=== PATIENT | male | born 1960 | race African-American/Black ===

== ENCOUNTER 2017-09-14 07:07 | Outpatient (CLI) | payer OTHER ==
--- NOTE | 2017-09-14 08:39 | ULT ---
HEPATIC SONOGRAM WITH DUPLEX EVALUATION. HISTORY: Hepatitis C. FINDINGS: Echogenic stones are present within the dependent portion of the gallbladder lumen. There is no gall bladder wall thickening or pericholecystic fluid. The common duct is 0.4 cm diameter. T he liver is unremarkable without focal mass or intrahepatic biliary dilatation. No free fluid is visible. The s pleen is 9.4 cm in length. Good color and spectral Doppler flow are present within the hepatic and splenic arteries. Portal liz ous flow is towards the liver. Hepatic venous flow is towards the IVC. IMPRESSION: 1. Cholelithiasis. No evidence of acute biliary obstruction. 2. No sonographic evidence of portal venous hypertension. POS: [facility]
== END 2017-09-14 07:08 | disposition home or self-care (01) ==
LOC: ULT 07:07
PROVIDERS: ATTEND Internal Medicine Gastroenterology
DX: B18.2 Chronic viral hepatitis C (principal); K74.60 Unspecified cirrhosis of liver; K80.20 Calculus of gallbladder without cholecystitis without obstruction
CPT/HCPCS: 76705

== ENCOUNTER 2018-03-15 07:28 | Outpatient (CLI) | payer OTHER | END 2018-03-15 07:29 | disposition home or self-care (01) | LOC: BICULT 07:28 | PROVIDERS: ATTEND Internal Medicine Gastroenterology | DX: B18.2 Chronic viral hepatitis C (principal); K80.20 Calculus of gallbladder without cholecystitis without obstruction; R93.2 Abnormal findings on diagnostic imaging of liver and biliary tract | CPT/HCPCS: 76705 ==

== ENCOUNTER 2018-08-15 20:30 | Outpatient (CLI) | payer OTHER | END 2018-08-15 20:31 | disposition home or self-care (01) | LOC: SLEEPLAB 20:30 | PROVIDERS: ATTEND Family Medicine | DX: G47.33 Obstructive sleep apnea (adult) (pediatric) (principal); I10 Essential (primary) hypertension; R06.83 Snoring; R09.89 Other specified symptoms and signs involving the circulatory and respiratory systems | CPT/HCPCS: 95811 ==

== ENCOUNTER 2021-03-12 07:29 | Outpatient (CLI) | payer OTHER | END 2021-03-12 07:30 | disposition home or self-care (01) | LOC: BICULT 07:29 | PROVIDERS: ATTEND Physician Assistant Medical | DX: K74.60 Unspecified cirrhosis of liver (principal); K21.9 Gastro-esophageal reflux disease without esophagitis; K80.20 Calculus of gallbladder without cholecystitis without obstruction | CPT/HCPCS: 36415; 76705; 80053; 82105; 85025 ==

== ENCOUNTER 2021-09-17 07:20 | Outpatient (CLI) | payer OTHER | END 2021-09-17 07:21 | disposition home or self-care (01) | LOC: BICULT 07:20 | PROVIDERS: ATTEND Physician Assistant Medical | DX: K74.60 Unspecified cirrhosis of liver (principal); K21.9 Gastro-esophageal reflux disease without esophagitis; K80.20 Calculus of gallbladder without cholecystitis without obstruction | CPT/HCPCS: 76705 ==

== ENCOUNTER 2022-04-10 07:43 | Outpatient (CLI) | payer OTHER | END 2022-04-10 07:44 | disposition home or self-care (01) | LOC: BICULT 07:43 | PROVIDERS: ATTEND Physician Assistant Medical | DX: K74.60 Unspecified cirrhosis of liver (principal); K80.20 Calculus of gallbladder without cholecystitis without obstruction; K83.8 Other specified diseases of biliary tract | CPT/HCPCS: 76705 ==

== ENCOUNTER 2022-05-29 07:37 | Outpatient (CLI) | payer OTHER ==
[2022-05-29] MEDS ORDERED: Magnevist 469MG/ML 20 ML VIAL ONE (14:59)
== END 2022-05-29 07:38 | disposition home or self-care (01) ==
LOC: MRI 07:37
PROVIDERS: ATTEND Physician Assistant Medical
DX: K80.20 Calculus of gallbladder without cholecystitis without obstruction (principal); K83.8 Other specified diseases of biliary tract; N28.1 Cyst of kidney, acquired; K76.89 Other specified diseases of liver
CPT/HCPCS: 74183

== ENCOUNTER 2022-08-13 13:36 | Outpatient (CLI) | payer OTHER | END 2022-08-13 13:37 | disposition home or self-care (01) | LOC: BICCT 13:36 | PROVIDERS: ATTEND Student in an Organized Health Care Education/Training Program | DX: Z12.2 Encounter for screening for malignant neoplasm of respiratory organs (principal); F17.211 Nicotine dependence, cigarettes, in remission | CPT/HCPCS: 71271 ==

== ENCOUNTER 2022-11-20 12:29 | Outpatient (CLI) | payer OTHER | END 2022-11-20 12:30 | disposition home or self-care (01) | LOC: RAD 12:29 | PROVIDERS: ATTEND Student in an Organized Health Care Education/Training Program | DX: M47.26 Other spondylosis with radiculopathy, lumbar region (principal); M25.561 Pain in right knee; M25.78 Osteophyte, vertebrae; Z98.890 Other specified postprocedural states | CPT/HCPCS: 72100 ==

== ENCOUNTER 2023-05-29 11:02 | Outpatient (CLI) | payer OTHER | END 2023-05-29 11:03 | disposition home or self-care (01) | LOC: RAD 11:02 | PROVIDERS: ATTEND Student in an Organized Health Care Education/Training Program | DX: M25.512 Pain in left shoulder (principal); M19.012 Primary osteoarthritis, left shoulder ==

== ENCOUNTER 2023-09-09 08:47 | Outpatient (CLI) | payer OTHER, MEDICAID | END 2023-09-09 08:48 | disposition home or self-care (01) | LOC: BICULT 08:47 | PROVIDERS: ATTEND Physician Assistant Medical | DX: K74.60 Unspecified cirrhosis of liver (principal); K80.20 Calculus of gallbladder without cholecystitis without obstruction | CPT/HCPCS: 76705 ==

== ENCOUNTER 2023-11-04 08:23 | Outpatient (CLI) | payer OTHER, MEDICAID ==
[2023-11-04] MEDS ORDERED: Iopamidol-370 76% 500 ML MDV (1 ML CHARGE) ONE (11:09)
== END 2023-11-04 08:24 | disposition home or self-care (01) ==
LOC: BICCT 08:23
PROVIDERS: ATTEND Physician Assistant Medical
DX: K74.60 Unspecified cirrhosis of liver (principal); R10.10 Upper abdominal pain, unspecified; R10.30 Lower abdominal pain, unspecified; N50.89 Other specified disorders of the male genital organs; R35.0 Frequency of micturition; R19.7 Diarrhea, unspecified; K80.20 Calculus of gallbladder without cholecystitis without obstruction; K55.1 Chronic vascular disorders of intestine
CPT/HCPCS: 74177

== ENCOUNTER 2024-07-22 08:42 | Outpatient (CLI) | payer OTHER, MEDICAID | END 2024-07-22 08:43 | disposition home or self-care (01) | LOC: ULT 08:42 | PROVIDERS: ATTEND Physician Assistant Medical | DX: R10.13 Epigastric pain (principal); K74.60 Unspecified cirrhosis of liver; K80.20 Calculus of gallbladder without cholecystitis without obstruction; K21.9 Gastro-esophageal reflux disease without esophagitis; K74.01 Hepatic fibrosis, early fibrosis | CPT/HCPCS: 76705 ==

== ENCOUNTER 2025-04-27 07:32 | Emergency (ER) | payer OTHER, MEDICAID ==
[2025-04-27 08:08] LABS: Hematocrit 41.7 % (42.0-52.0); Hemoglobin 14.1 g/dL (14.0-18.0); Mean Corpuscular Hemoglobin 28.5 pg (27.0-31.0); Mean Corpuscular Volume 84.4 fL (78.0-98.0); Platelet Count 258 10x3/uL (130-400); Red Blood Cell (RBC) Count 4.94 mill/uL (4.70-6.10); White Blood Cell (WBC) Count 12.94 10x3/uL (4.8-10.8)
[2025-04-27] MEDS ORDERED: Ondansetron PF 4 MG/2 ML Vial ONE (08:18)
[2025-04-27 08:21] LABS: ALT (SGPT) 25 U/L (Less than 45); AST (SGOT) 40 U/L (11-34); Albumin 4.7 g/dL (3.1-4.5); Alkaline Phosphatase 83 U/L (40-110); Anion Gap 13 mmol/L (10-20); BUN (Urea Nitrogen) 30 mg/dL (8.4-25.7); Bilirubin, Total 0.5 mg/dL (0.3-1.2); Calc. Creatinine Clearance 0 mL/min (70-130); Calcium 9.2 mg/dL (7.8-10.44); Carbon Dioxide 25 mmol/L (23-31); Chloride 101 mmol/L (98-107); Globulin 3.2 g/dL (2.4-3.5); Glucose 108 mg/dL (80-115); Potassium 3.8 mmol/L (3.5-5.1); Sodium 135 mmol/L (136-145)
[2025-04-27 08:25] LABS: Troponin I Less than 0.010 ng/mL (< 0.028)
[2025-04-27 09:19] LABS: Platelet Adequacy Comment Platelets Normal; Smudge Cells 2.0 %
[2025-04-27] MEDS ORDERED: Ketorolac Tromethamine 30 MG (1 mL) VIAL ONE (11:15)
[2025-04-27] MEDS ORDERED: Acetaminophen 500 MG TAB ONE (11:15)
== END 2025-04-27 12:30 | disposition home or self-care (01) ==
LOC: ERS 07:32
DX: R10.9 Unspecified abdominal pain (principal); M54.32 Sciatica, left side; I12.9 Hypertensive chronic kidney disease with stage 1 through stage 4 chronic kidney disease, or unspecified chronic kidney disease; N18.9 Chronic kidney disease, unspecified; F17.210 Nicotine dependence, cigarettes, uncomplicated
CPT/HCPCS: 71275; 74174; 80053; 84484; 85025; 93005; 96374; 96375; 96376; J1885; J2270; J2405

== ENCOUNTER 2025-07-28 08:44 | Outpatient (CLI) | payer OTHER, MEDICAID | END 2025-07-28 08:45 | disposition home or self-care (01) | LOC: ULT 08:44 | PROVIDERS: ATTEND Physician Assistant Medical | DX: K74.60 Unspecified cirrhosis of liver (principal); K80.20 Calculus of gallbladder without cholecystitis without obstruction; K83.8 Other specified diseases of biliary tract | CPT/HCPCS: 76705 ==